=== PATIENT | male | born 1980 | race Caucasian/White ===

== ENCOUNTER 2022-07-22 15:34 | Emergency (ER) | payer OTHER, SELFPAY ==
[2022-07-22 15:47] VITALS: BP 142/71; PULSE 86; RESP 20; TEMP 37.1; O2SAT 99
--- NOTE | 2022-07-22 16:01 | ED.URI ---
HPI - URI/Sore Throat General Chief Complaint: Upper Respiratory Infection Stated Complaint: Sore Throat/Left Ear Pain Time Seen by Provider: 07/22/22 16:01 Source: patient, RN notes reviewed and old records reviewed Mode of arrival: ambulatory Limitations: no limitations History of Present Illness HPI Narrative: 41 YEAR OLD MALE WHO PRESENTS TO [facility] CARE WITH COMPLAINT OF SORE THROAT, SINUS PRESSURE, LEFT EAR PAIN, SINUS CONGESTION WITH DRAINAGE FOR THE PST 2 WEEKS WITH INCREASED SYMPTOMS FOR THE PAST 2 DAYS. PATIENT REPORTS THAT HE HAS BEEN TAKING ADVIL, DAYQUIL AND NYQUIL FOR HIS SYMPTOMS.Patient reports that he is leaving for trip soon wants to be sure to be well before he travels. MD elicited complaint: sore throat, rhinorrhea, nasal congestion and other (LEFT EAR PAIN) Pertinent past history: sinusitis Onset (ago): week(s) (2 with increased symptoms for past 2 days) Severity: severe Pain scale (0-10): 8 Able to tolerate fluids by mouth: Yes Treatments prior to arrival: ibuprofen and other (DAYQYUIL, NYQUIL) Related Data Allergies Allergy/AdvReac Type Severity Reaction Status Date / Time No Known Allergies Allergy Verified 07/22/22 15:57 Review of Systems Review of Systems: CONSTITUTIONAL: Denies malaise, chills, sweats, or fever. EYES: Denies visual changes, redness, or discharge. ENT: Reports rhinorrhea, congestion, sinus pain,left otalgia and sore throat. CARDIOVASCULAR: Denies chest pain, palpitations, or edema. RESPIRATORY: Reports no acute cough.? Denies dyspnea. GASTROINTESTINAL: Denies abdominal pain, nausea, vomiting, diarrhea SKIN: Denies rash or itching. MUSCULOSKELETAL: Denies myalgia. NEUROLOGIC: Denies headache. All systems reviewed & are unremarkable except as noted in HPI and below PMFSH Past Medical History Medical History (Updated 07/24/22 @ 14:54 by Rehana Rosales NP) Sinusitis Surgical History Surgical History (Updated 07/24/22 @ 14:55 by Rehana Rosales NP) History of tonsillectomy Social History Social History (Updated 07/24/22 @ 14:53 by Rehana Rosales NP) Smoking status: Former smoker Alcohol intake: current Alcohol use details: social Substance use type: does not use Living arrangements: with family Gender identity (if verbalized by the patient): Male Comments At time of signature, agree with nursing past medical, surgical, social and family history. There is no relevant family history pertinent to the presenting complaint Exam Narrative: GENERAL: Well-appearing, well-nourished, and in no acute distress. HEAD: Normocephalic EYES: PERRLA, conjunctivae clear ENT: Nares clear, turbinates edematous and erythematous, clear discharge. Mucous membranes moist.Left TM red withot drainage,Right TM pearly betancur with dull light reflex; no tragal tenderness. Oropharynx erythematous without lesions. Tonsils not present and without exudate, no drooling, no hoarseness, no trismus, uvula midline.post nasal drainage. NECK: Supple. No lymphadenopathy CHEST: Clear to auscultation, breath sounds equal. No wheezing, rhonchi, rales, or stridor. No respiratory distress, speaks in full sentences.SAO2 99% on room air HEART: Regular rate and rhythm. No murmur heard. SKIN: Warm, dry, no rash. NEURO: Alert and oriented x3. PSYCH: Normal mood and affect Course Course Emergency Course: Patient is aware of diagnosis, understands and agrees to treatment plan.? Anticipatory guidance given.? Patient agrees to follow-up as directed and is aware of reasons to seek care at the emergency department. Portions of this record may have been created with voice recognition software Level of Care: Express Care Visit Vital Signs Vital signs: Vital Signs Temperature 37.1 C 07/22/22 15:47 Pulse Rate 86 07/22/22 15:47 Respiratory Rate 20 07/22/22 15:47 Blood Pressure 142/71 H 07/22/22 15:47 Pulse Oximetry 99 07/22/22 15:47 Oxygen Delivery Room
== END 2022-07-22 16:25 | disposition home or self-care (01) ==
PROVIDERS: Emergency Provider Registered Nurse; PCP Internal Medicine
DX: H66.92 Otitis media, unspecified, left ear (principal); J01.40 Acute pansinusitis, unspecified; Z87.891 Personal history of nicotine dependence
CPT/HCPCS: 87081; 87880; 99203; G0463